=== PATIENT | male | born 1960 | race African-American/Black ===

== ENCOUNTER 2018-10-20 13:28 | Emergency (ER) ==
[2018-10-20 13:42] VITALS: BP 185/96; TEMP 97.4; BMI 20.8
--- NOTE | 2018-10-20 16:10 | CT ---
EXAM: CT of the chest without contrast History: Left chest wall pain. Technique: Multiplanar CT images through the chest were obtained without the administration of IV co ntrast Findings: Heart is enlarged. Coronary artery calcifications. No thoracic aortic aneurysm. No path ologically enlarged thoracic lymph nodes. Left breast gynecomastia. This correlates with the palpab le abnormality. Moderate emphysema. No consolidation. No pleural fluid and no pneumothorax. No barrios spicious lung masses or lung nodules. Within the visualized upper abdomen, no acute findings. No acute osseous abnormalities. Impression: 1. No acute intrathoracic process. 2. Left breast gynecomastia. 3. Coronary artery disease. 4. Emphysema
--- NOTE | 2018-10-20 16:43 | ED.PDOC ---
General ED Provider: Dr. LANG LAINEZ Chief Complaint: Chest Wall Injury/Pain Stated Complaint: LEFT BREAST PAIN Time Seen by Physician: 13:50 Mode of Arrival: Walk-In Information Source: Patient Nursing and Triage Documentation Reviewed and Agree: Yes Does patient meet sepsis criteria?: No System Inflammatory Response Syndrome: Not Applicable Sepsis Protocol: For patient's 13 years and over: Temp is 96.8 and below OR 101 and greater Pulse >90 BPM Resp >20/minute Acutely Altered Mental Status Are patient's symptoms suggestive of a new infection, such as: -Pneumonia -Skin, Soft Tissue -Endocarditis -UTI -Bone, Joint Infection -Implantable Device -Acute Abdominal Infection -Wound Infection -Meningitis -Blood Stream Catheter Infection -Unknown Trauma/Injury Complaint Exam - Trauma Complaint/Exam Location of Pain or Injury: Reports: Chest, Other (WHILE PUSHING ON BENCH [employer]ESS ROUTINE . THE BAR CAME IN CONTACT WITH CHEST DID NOT DROP IT IT SCRAPED THE LEFT BREAST ) Mechanism of Injury: Reports: Other (CHEST WALL TRAUMA ) Onset/Duration: 1 HR AGO Symptoms Are: Still present Timing of Treatment: Immediate Initial Severity: Mild Current Severity: Mild Character: Reports: Aching Aggravating: Reports: Movement Alleviating: Reports: Rest Associated Signs and Symptoms: Denies: LOC, Confusion, Memory loss, Lethargy, Vomiting, Bleeding, Bruising, Swelling, Extremity disuse, Painful respiration, Hoarseness, Dysphagia, Hemoptysis, Significant blood loss Related History: Reports: Similar episode Penetrating Injury Risk Factors: Reports: None Related Surgical History: Reports: None Nexus Low Risk Criteria: No post-midline CS tender, No evidence of intoxicat., No Altered LOC, No focal neuro deficit, No distracting injuries Glascow Coma Scale (see protocol): 15 Trauma Findings: Absent: [place] eyes, Hemotympanum, Nasal deformity, Dental tenderness, Dental injury, Dental malocclusion Review of Systems - Review Of Systems Constitutional: Reports: No symptoms Eyes: Reports: No symptoms Ears, Nose, Mouth, Throat: Reports: No symptoms Respiratory: Reports: No symptoms Cardiac: Reports: No symptoms GI: Reports: No symptoms : Reports: No symptoms Musculoskeletal: Reports: No symptoms Skin: Reports: No symptoms Neurological: Reports: No symptoms Endocrine: Reports: No symptoms Hematologic/Lymphatic: Reports: No symptoms All Other Systems: Reviewed and Negative Past Medical History - Past Medical History Previously Healthy: Yes Endocrine: Reports: None Cardiovascular: Reports: None Respiratory: Reports: None Hematological: Reports: None Gastrointestinal: Reports: None Genitourinary: Reports: None Neuro/Psych: Reports: None Musculoskeletal: Reports: None Cancer: Reports: None - Surgical History General Surgical History: Reports: None - Family History Family History: Reports: None - Social History Smoking Status: Current every day smoker, Heavy tobacco smoker Hx Substance Use: Yes (marijuana) Alcohol Screening: Occasionally Physical Exam - Physical Exam Appearance: Well-appearing, No pain distress, Well-nourished Eyes: HUNG, EOMI, Conjunctiva clear ENT: Ears normal, Nose normal, Oropharynx normal Respiratory: Airway patent, Breath sounds clear, Breath sounds equal, Respirations nonlabored Cardiovascular: RRR, Pulses normal, No rub, No murmur GI/: Soft, Nontender, No masses, Bowel sounds normal, No Organomegaly Musculoskeletal: Normal strength, ROM intact, No edema, No calf tenderness Skin: Warm, Dry, Normal color Neurological: Sensation intact, Motor intact, Reflexes intact, Cranial nerves intact, Alert, Oriented Psychiatric: Affect appropriate, Mood appropriate Interpretation - Radiology Interpretation Radiology Interpretation By: Radiologist Radiology Results: No acute changes (HAS GYNECOMASTIA. URGED PT TO SEE THE CLINIC AND GET A MAMOGRAM) Re-Evaluation - Re-Evaluation Time of Re-Evaluation: 16:44 Status: Improved Vital Signs Stable: Yes Pain Level: 0 Appearance: NAD Lungs: Clear Skin: Warm and Dry Neuro: Alert and Oriented X3 CV: RRR Critical Care Note - Critical Care Note Total Time (mins): 0 Course - Course Orders, Labs, Meds: Orders Category Date Time Status CT CHEST W/O CONTRAST Stat RADS 10/20/18 15:17 Completed Vital Signs: Temp Pulse Resp BP Pulse Ox 10/20/18 13:30 97.4 F L 59 L 20 185/96 H 99 Departure - Departure Time of Disposition: 16:44 (SEE PHOTOS, NO MASSES NOTED IN THE LEFT BREAST OR AXILLARY TAIL. MAMOGRAM STRESSED BILLY PRESENT AT D/C INSTRUCTION) Disposition: HOME SELF-CARE Discharge Problem: Chest wall pain, Chest injury Instructions: Chest Pain (ED), Chest Wall Pain (ED) Condition: Good Pt referred to PMD for follow-up: Yes IPMP verified?: No Additional Instructions: Please call your Family Physician as soon as possible to schedule a follow-up appointment.FOLLOW UP WITH [facility] THERE LEFT BREAST MUST HAVE A VELMA GRAM MAKE SURE THERE IS NO TUMOR Allergies/Adverse Reactions: Allergies No Known Allergies Allergy (Unverified 10/20/18 13:36) Home Medications: Ambulatory Orders 1 [No Reported Medications] 10/20/18
== END 2018-10-20 16:58 | disposition home or self-care (01) ==
LOC: ED 13:28
DX: S29.9XXA Unspecified injury of thorax, initial encounter (principal); N62 Hypertrophy of breast; W22.8XXA Striking against or struck by other objects, initial encounter; Y93.59 Activity, other involving other sports and athletics played individually; F17.210 Nicotine dependence, cigarettes, uncomplicated
CPT/HCPCS: 99282